=== PATIENT | female | born 1975 ===

== ENCOUNTER → 2019-07-25 | Outpatient (REF) | payer OTHER ==
[2019-07-25 13:26] LABS: BLOOD UREA NITROGEN 12 MG/DL (7-18); CREATININE FOR GFR 0.92 MG/DL (0.55-1.30); GLOMERULAR FILTRATION RATE > 60.0 (>58); RHEUMATOID FACTOR QUANT < 10.0 IU/ML (<15.0); TOTAL PROTEIN 7.4 GM/DL (6.4-8.2)
[2019-07-25 13:34] LABS: VITAMIN B12 LEVEL 530 PG/ML (247-911)
[2019-07-25 13:36] LABS: FOLATE > 24.0 NG/ML (>5.4)
[2019-07-29 14:25] LABS: ALBUMIN 4.93 GM/DL (3.29-5.55); ALBUMIN % 66.6 % (55.8-66.1); ALPHA-1-GLOBULIN % 3.8 % (2.9-4.9); ALPHA-1-GLOBULINS 0.28 GM/DL (0.17-0.41); ALPHA-2-GLOBULINS % 9.4 % (7.1-11.8); BETA-1-GLOBULINS 0.41 GM/DL (0.28-0.60); BETA-1-GLOBULINS % 5.6 % (4.7-7.2); BETA-2-GLOBULINS % 4.1 % (3.2-6.5); GAMMA GLOBULIN % 10.5 % (11.1-18.8)
[2019-07-29 14:26] LABS: GAMMA GLOBULINS 0.78 GM/DL (0.65-1.58)
[2019-07-31 00:08] LABS: ANCA-ATYPICAL <1:20 titer (Neg:<1:20); ANGIOTENSIN 1 CONVERTING ENZYM 41 U/L (14-82); ANTINUCLEAR ANTIBODIES DIRECT Negative (Negative); CERULOPLASMIN 27.1 mg/dL (19.0-39.0); COPPER PLASMA 118 ug/dL (72-166); CYTOPLASMIC NEUTROP AB ANCA-C <1:20 titer (Neg:<1:20); LEAD BLOOD ADULT <1 ug/dL (0-4); Lyme Disease IgG/IgM Antibodie <0.91 ISR (0.00-0.90); Lyme Disease IgM Ab Quantitati <0.80 index (0.00-0.79); MERCURY LEVEL None Detected ug/L (0.0-14.9); PERINUCLEAR AB ANCA-P <1:20 titer (Neg:<1:20); VITAMIN B1 LEVEL WHOLE BLOOD 126.4 nmol/L (66.5-200.0); VITAMIN B6,PYRIDOXAL PHOSPHATE 47.9 ug/L (2.0-32.8); VITAMIN E(GAMMA TOCOPHEROL) 1.3 mg/L (0.5-5.5)
== END ==
LOC: M LABNEURO 09:06
PROVIDERS: ATTEND Psychiatry & Neurology Neurology
DX: R20.0 Anesthesia of skin (principal)